=== PATIENT | male | born 2000 | race Caucasian/White ===

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

== ENCOUNTER 2022-07-08 07:03 | Emergency (ER) | payer SELFPAY ==
[~2022-07-08] VITALS: Ht 172.7 cm; Wt 86.0 kg
[2022-07-08 07:42] LABS: COLLECTION METHOD CLEAN CATCH
[2022-07-08 07:43] LABS: BASO % 0.2 % (0.0-2.0); EOS # 0.1 K/mm3 (0.0-0.7); EOS % 0.5 % (0.0-4.0); GRAN # 4.7 K/mm3 (1.4-6.5); GRAN % 48.3 % (42.2-75.2); HEMOGLOBIN 10.8 g/dl (13.5-18.0); LYMPH # 4.6 K/mm3 (1.2-3.4); LYMPH % 46.8 % (20.0-51.0); MEAN CELL VOLUME 90 fl (80.0-100.0); MEAN CORPUSCULAR HEMOGLOBIN 29 pg (27-31); MEAN CORPUSCULAR HGB CONC 32 g/dl (33.0-37.0); MEAN PLATELET VOLUME 9.4 fl (7.4-10.4); MONO # 0.3 K/mm3 (0.1-0.6); MONO % 3.2 % (1.7-9.3); PLATELET COUNT 230 K/mm3 (130-400); RED BLOOD COUNT 3.73 M/mm3 (4.20-5.60); REDCELL DISTRIBUTION WIDTH-CV 13.7 % (11.5-14.5)
[2022-07-08 07:44] LABS: HEMATOCRIT 33.6 % (42.0-52.0)
[2022-07-08 07:51] LABS: MUCOUS Present (NOT PRESENT); SQUAMOUS EPITHELIAL None Seen /hpf (0-10); URINE BACTERIA None Seen /hpf (NONE SEEN); URINE RBC >50 /hpf (0-2)
[2022-07-08 07:53] LABS: PH 5.5 (5.0-8.5); URINE APPEARANCE Cloudy (CLEAR/HAZY); URINE BLOOD 3+ (NEGATIVE); URINE COLOR Yellow (YELLOW); URINE GLUCOSE Negative (NEGATIVE); URINE KETONE Negative (NEGATIVE); URINE NITRATE Negative (NEGATIVE); URINE PROTEIN(semi-quant) TRACE (NEGATIVE); URINE UROBILINOGEN 0.2 E.U/dL (0.2-1.0)
[2022-07-08 07:53] LABS: ALANINE AMINOTRANSFERASE 258 U/L (0-55); ALBUMIN 3.4 gm/dL (3.5-5.0); ALCOHOL(ethanol),MEDICAL < 10 mg/dL (0-10); ALKALINE PHOSPHATASE 72 U/L (40-150); ANION GAP 15 mmol/L (7-16); AST,SGOT 159 U/L (5-34); BILIRUBIN,TOTAL 0.4 mg/dL (0.2-1.2); BLOOD UREA NITROGEN 15 mg/dL (9-21); CALCIUM 7.7 mg/dL (8.4-10.2); CARBON DIOXIDE 18 mmol/L (22-29); CHLORIDE 109 mmol/L (98-107); CREATININE, serum 0.88 mg/dL (0.72-1.25); GLUCOSE 139 mg/dL (70-99); POTASSIUM 3.7 mmol/L (3.5-4.5); SODIUM 142 mmol/L (136-145); TOTAL PROTEIN 6.9 gm/dL (6.2-8.1)
[2022-07-08 08:42] VITALS: BP 91/72; PULSE 107; TEMP 96.1
[2022-07-08 09:34] LABS: TRICYCLIC ANTIDEPRESS URINE NEGATIVE
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
[2022-07-08 12:25] LABS: ARTERIAL BLD GAS O2 SATURATION 99.1 % (92-100); ARTERIAL BLD GAS TCO2 CT 17.4; ARTERIAL BLOOD GAS BASE EXCESS -9.4 (-2-2); ARTERIAL BLOOD GAS HCO3 16.3 meq/L (22-26); ARTERIAL BLOOD GAS PCO2 35.1 mmHg (35-45); ARTERIAL BLOOD GAS pH 7.29 (7.35-7.45)
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
== END 2022-07-08 08:42 | disposition short-term general hospital (02) ==
LOC: COL.ER 07:03
PROVIDERS: Family Medicine
DX: S32.402A Unspecified fracture of left acetabulum, initial encounter for closed fracture (principal); R57.1 Hypovolemic shock; J96.90 Respiratory failure, unspecified, unspecified whether with hypoxia or hypercapnia; Z20.822 Contact with and (suspected) exposure to COVID-19; V89.2XXA Person injured in unspecified motor-vehicle accident, traffic, initial encounter; Y92.410 Unspecified street and highway as the place of occurrence of the external cause
CPT/HCPCS: A4314; J0330; J2060; J2270; J7030; J7040; J7060; P9016

== ENCOUNTER 2022-07-19 06:00 | Inpatient (IN) | payer OTHER ==
[~2022-07-19] VITALS: Ht 172.7 cm; Wt 75.4 kg
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
[2022-07-19] MEDS ORDERED: TYLENOL 325MG325 MG PO (11:57)
[2022-07-19] MEDS ORDERED: BACITRACIN Z500 U/GM TP (11:58)
[2022-07-19] MEDS ORDERED: VOLTAREN GEL 1%1 TU TP (11:59)
[2022-07-19] MEDS ORDERED: DULCOLAX S10 MG/SUPP RC (11:59)
[2022-07-19] MEDS ORDERED: LOVENOX 4040 MG/0.4 SQ (12:00)
[2022-07-19] MEDS ORDERED: NEURONTIN300 MG/CAP PO (12:01)
[2022-07-19] MEDS ORDERED: NEURONTIN100 MG/CAP PO (12:02)
[2022-07-19] MEDS ORDERED: ATARAX 25MG25 MG/TAB PO ×2 (12:03→12:04)
[2022-07-19] MEDS ORDERED: TORADOL 10MG TA10 MG PO (12:05)
[2022-07-19] MEDS ORDERED: MAG-OX 400400 MG/TAB PO (12:06)
[2022-07-19] MEDS ORDERED: MELATONIN5 M1 SL (12:07)
[2022-07-19] MEDS ORDERED: ROBAXIN 50500 MG/TAB PO (12:07)
[2022-07-19] MEDS ORDERED: GOOD NEIGH1200 MG/15 PO (12:08)
[2022-07-19] MEDS ORDERED: MULTIVITAMIN PO (12:09)
[2022-07-19] MEDS ORDERED: ROXICODONE 55 MG/TAB PO (12:10)
[2022-07-19] MEDS ORDERED: MIRALAX PA17 GM/Dose PO (12:10)
[2022-07-19] MEDS ORDERED: DESYREL 50MG50 MG PO (12:11)
[2022-07-19] MEDS ORDERED: SENNA-LAX8.6 MG PO (12:11)
[2022-07-19] MEDS ORDERED: VALTREX1 GM PO (12:12)
[2022-07-19 13:22] VITALS: BP 104/58; PULSE 104; TEMP 98.1
--- NOTE | 2022-07-19 14:14 | NUR ---
Has lack of transportation kept you from medical appts, meetings, work, or from getting things needed for daily living? NO How often do you feel lonely or isolated from those around you? NEVER Over the past 5 days, how much of the time has pain made it hard for you to sleep? FREQUENTLY Over the past 5 days, how often have you limited your participation in therapy due to pain? RARELY/NOT AT ALL Over the past 5 days, how often have you limited your day-to-day activities because of pain? RARELY/NOT AT ALL Have you had 2 or more falls in the past year or any fall with an injury? NO Did you have major surgery during the 100 days prior to admission? YES
--- NOTE | 2022-07-19 14:23 | NUR ---
OT to room to eval pt and provide bedside bath. Pt was given pain medication approx 1 hr ago followed by a 2nd dose per PRN order for hip pain
--- NOTE | 2022-07-19 15:29 | NUR ---
Pt is back in his room after working w/ PT and resting supine in bed. Pt reporting that his left hip dressing is peeling off. Tegaderm x 2 applied to reinforce the current dressing. Dressing is otherwise CDI. KEO drain with serosaig drainage noted - 10 mL emptied from drain. Pt is worried about the process for obtaining FMLA. Kayla, clinical liason, will contact [employer] to help pt with the FMLA process.
--- NOTE | 2022-07-19 15:56 | NUR ---
Pt requesting his fiance be allowed to stay the night tonight. Approval for tonight received from Carly Sutherland and ELOY Jack. Pt is aware.
[2022-07-19 17:23] VITALS: BP 122/73; PULSE 91; TEMP 98.5
--- NOTE | 2022-07-19 18:28 | NUR ---
Pt assisted w/ repositioning in bed. Pt reporting that he "hurts really bad". Scheduled Tylenol given approx 30 min ago. Oxycodone given per PRN order. Reminded pt that if pain is not better, he can have an additional 5mg 45 minutes later. Lt hip dsg is CDI. Abd midline incision with CDI little. KEO drain dressing is CDI. Scant amount of serosanguineous drainage noted in bulb. Pt's dinner tray just delivered. He denies additional needs. Call light is in his reach. Bed alarm is on. Significant other is at the bedside.
--- NOTE | 2022-07-19 19:00 | NUR ---
RECEIVED CHANGE OF SHIFT REPORT FROM DAY SHIFT RN.
[2022-07-20 05:06] VITALS: BP 132/59; PULSE 70; TEMP 97.1
[2022-07-20 07:04] LABS: CALCIUM 9.1 mg/dL (8.4-10.2); CREATININE, serum 0.63 mg/dL (0.72-1.25); POTASSIUM 4.3 mmol/L (3.5-4.5)
--- NOTE | 2022-07-20 07:07 | NUR ---
Shift report received from retail shift leader RN.
--- NOTE | 2022-07-20 07:27 | NUR ---
CHANGE OF SHIFT REPORT GIVEN TO DAY SHIFT RNNILS.
[2022-07-20 07:30] VITALS: BP 109/64; PULSE 73; TEMP 97.6
[2022-07-20 07:32] LABS: BASO # 0.1 K/mm3 (0.0-0.2); BASO % 0.6 % (0.0-2.0); EOS # 0.5 K/mm3 (0.0-0.7); GRAN # 8.1 K/mm3 (1.4-6.5); GRAN % 69.7 % (42.2-75.2); HEMATOCRIT 30.2 % (42.0-52.0); HEMOGLOBIN 10.1 g/dl (13.5-18.0); LYMPH # 1.8 K/mm3 (1.2-3.4); LYMPH % 15.5 % (20.0-51.0); MEAN CELL VOLUME 89 fl (80.0-100.0); MEAN CORPUSCULAR HEMOGLOBIN 30 pg (27-31); MEAN CORPUSCULAR HGB CONC 33 g/dl (33.0-37.0); MEAN PLATELET VOLUME 8.6 fl (7.4-10.4); MONO # 1.1 K/mm3 (0.1-0.6); MONO % 9.4 % (1.7-9.3); PLATELET COUNT 1085 K/mm3 (130-400); RED BLOOD COUNT 3.39 M/mm3 (4.20-5.60); REDCELL DISTRIBUTION WIDTH-CV 15.7 % (11.5-14.5)
--- NOTE | 2022-07-20 09:44 | NUR ---
Pt is back in his room after OT and is lying supine in bed. Pt ate 100% of his breakfast independently. Pt reporting shoulder pain, hip pain. Oxycodone dose increased for reports of uncontrolled pain during the night. Oxycodone 10mg given per PRN order. Pt initially reported nausea, but currently denies. Zofran wasted in medication room. Pt denies additional needs at this time. Call light is in his reach. Bed alarm is on.
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
[2022-07-20 17:08] VITALS: BP 112/68; PULSE 75; TEMP 98.2
--- NOTE | 2022-07-20 18:40 | NUR ---
Pt resting supine in bed. HOB is slightly elevated. Boyfriend is here to visit. PRN pain medication and scheduled Tylenol given approx 45 minutes ago for hip pain and left arm pain. Pt denies additional needs at this time. Call light is in his reach. Bed alarm is on.
--- NOTE | 2022-07-20 19:29 | NUR ---
BED ALARM SOUNDING. PT SITTING UP ON SIDE OF BED. C/O ABD FEELING FUNNY. REVIEWED IPR POLICIES FOR SAFETY. PT BECOMES ARGUMENTATIIVE. PROVIDED RATIONALE. STILL ARGUEMENTATIVE. ASSISTED TO BR PER WC. STARTED TO REFUSE GAIT BELT. TO TOILET. BATHROOM PULL STRING GIVEN TO PT. RE-ENFORCED NOT TO STAND UP UNTIL STAFF RETURNS. FOUND PT STANDING AT TOILET PULLING HIS PANTS UP. AGAIN ARGUMENTATIVE. WANTS SHOWER TONIGHT. OFFERED WARM BATH WIPES TO CLEAN UP. OT WILL ASSIST HIM WITH SHOWER TOMORROW. PT AGAIN ARGUMENTATIVE. BACK TO BED PER WC. ABLE TO LIFT LEGS INTO BED WITH DEVICE. CALL LIGHT IN REACH. BED ALARM SET.
[2022-07-21 06:20] VITALS: BP 107/61; PULSE 82; TEMP 97.7
--- NOTE | 2022-07-21 06:44 | NUR ---
BEDSIDE REPORT DONE ORDER WITH MERCEDES VILLAVICENCIO NURSE
--- NOTE | 2022-07-21 10:38 | NUR ---
ASSESSMENT DONE ORDER. PATIENT ALERT AND ORIENTED X 4 WITH NO MEMORY ISSUE. PATIENT LUNG CLEAR IN ALL LOBES. BOWENL SOUND ACTIVE IN ALL 4QUADS. PATIEN ABLE TO GET UP WITH ASSISTANCE BUT ABLE TO MOVE AROUND PIVOT FROM BED TO WHEELCHAIR AND TO THE BATHROOM
[2022-07-21 17:29] VITALS: BP 107/62; PULSE 78; TEMP 98
--- NOTE | 2022-07-21 19:10 | NUR ---
PATIENT HAS BEEN UP AND DOWN WITH CRYING. PAIN MEDICATION EVERY 4-5 HOURS. PAIN IN THE AFTERNOON/EVENING HAS BEEN THE STOMACH AREA. PATIENT DID HAVE A LOOSE WATERY STOOL. ATAREX WAS STARTED AND VALTREX. PATIENT REQUESTION TO SHOWER. DR HEATON ASK TO CALL DOCTORS FROM REGARDING IT. I CALLED [facility] SHOWER. LEFT MESSAGES
--- NOTE | 2022-07-21 21:17 | NUR ---
PT RESTING IN BED. CALM AND TALKATIVE. PAIN CONTROLLED AT THIS TIME. PT REPORTED IT WAS APPROVED FOR SO TO STAY WITH PT AT HS. NO NEEDS AT THIS TIME. CALL LIGHT IN REACH. BED ALARM SET.
[2022-07-22 06:27] VITALS: BP 103/63; PULSE 73; TEMP 97.9
--- NOTE | 2022-07-22 06:46 | NUR ---
BEDSIDE REPORT DONE ORDER. PATIENT RESTING PEACEFULLY.CALL LIGHT IN REACH
--- NOTE | 2022-07-22 10:17 | NUR ---
ASSESSMENT DONE ORDER. PATIENT ALERT AND ORIENTED. RECEIVED CALL FROM LIZETTE FROM [facility]. SHE GAVE US THE OK FOR PATIENT TO SHOWER BUT NOT GET THE INCISION WET. INFORM DOCTOR SUDARSHAN
--- NOTE | 2022-07-22 15:55 | NUR ---
Concrete Float Maker met with patient to follow up prior to weekend. SW advised patient she received [place] paperwork and will provide to it physician to sign. SW also discussed low income housing application with patient.
[2022-07-22 17:34] VITALS: BP 111/67; PULSE 80; TEMP 97.4
--- NOTE | 2022-07-23 01:36 | NUR ---
Patient assessed around 2054. Alert and oriented, and able to make needs known. Complaining of pain to left hip area. Given scheduled medications, as well as PRN Roxicodone as requested. Patient repositoned self in bed. Voices no further questions, needs, or concerns at this time. In bed with call light within reach.
[2022-07-23 05:17] VITALS: BP 124/96; PULSE 81; TEMP 97.6
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
--- NOTE | 2022-07-23 07:15 | NUR ---
BEDSIDE REPORT DONE ORDER. PATIENT RESTING IN BED
--- NOTE | 2022-07-23 10:17 | NUR ---
ASSESSMENT DONE ORDER. PATIENT ALERT AND ORIENTED. PATIENT ABLE TO GET UP WITH SBA AND WALKER. UNABLE TO STAND ON LEFT LEG. LUNG CLEAR. BOWEL SOUND ACTIVE IN ALL 4 QUADS. REFUSED TO EAT BREAKFAST AND SPOUSE BRING LUNCH AND DINNER
[2022-07-23 17:33] VITALS: BP 109/57; PULSE 78; TEMP 98.5
--- NOTE | 2022-07-23 18:15 | NUR ---
PATIENT C/O OF LEFT HIP PAIN AND OXY WAS NOT TOUCHING IT. GAVE PATIENT A HEATING PAD AND THAT WORK WELL, PER PAIN. PATIENT PAIN HAS BEEN ABOUT 2-3/10 AND PATIENT ONLY TOOK OXY X 2 TODAY. WE HELD THE LAXITIVE AM TODAY AND WILL GIVE TONIGHT.
--- NOTE | 2022-07-24 00:42 | NUR ---
PATIENT IS AOX4 AND PLEASANT TO SPEAK WITH. HE IS IN PAIN UPON ASSESSING PATIENT. THE PAIN IS IN HIS LEFT HIP AND CONTINUES DOWN HIS LEG, RATING IT A 7/10. GIVEN OXYCODONE 1X, TORADOL 1X, AND SCHEDULED TYLENOL. SPOUSE AT BEDSIDE. PILLOW ADJUSTED MULTIPLE TIMES FOR COMFORT. ASSISTED TO THE BATHROOM VIA STAND PIVOT TO WHEELCHAIR, TOLERATING WELL. SCD PLACED TO LEFT LEG. 25ML OUT OF KEO WITH SEROSANGUINOUS FLUID. VOLTAREN GEL APPLIED TO PAINFUL AREAS. JOHN INTACT AND PAINFUL TO TOUCH. HEATING PAD ON LEFT HIP INTERMITTENTLY. PATIENT HAD A BM TONIGHT, ONLY WANTED STOOL SOFTENERS SINCE HE HAD A BM. CURRENTLY SLEEPING IN BED WITH SPOUSE AT BEDSIDE. CALL LIGHT IN REACH. BED IN LOWEST POSITION.
--- NOTE | 2022-07-24 01:44 | NUR ---
Patient care, medication administration and nursing documentation occurred during a Daylight Savings Time Change.
--- NOTE | 2022-07-24 04:18 | NUR ---
PATIENT RESTING COMFORTABLY WITH SPOUSE AT BEDSIDE. FACES SCORE OF 0/10. WILL REASSESS WHEN VITAL SIGNS ARE TAKEN. CALL LIGHT IN REACH. BED IN LOWEST POSITION.
[2022-07-24 04:34] VITALS: BP 107/68; PULSE 69; TEMP 97.3
--- NOTE | 2022-07-24 07:05 | NUR ---
BEDSIDE REPORT DONE ORDER. PATIENT RESTING IN BED
--- NOTE | 2022-07-24 10:22 | NUR ---
ASSESSMENT DONE O RDER. PATIENT HAS BEEN RESTING IN BED WITH SOME PAIN THIS MORNING. BOTH PAIN MEDICATION WAS GIVEN ORDER AND HEATING PAD IN PLACE. AFTER ABOUT 1 HOURS. PATIENT STATED HIS PAIN IS MANAGEABLE. LUNG CLEAR., BOWEL SOUND ACTIVE.
--- NOTE | 2022-07-24 15:32 | NUR ---
PATIENT HAS BEEN RESTING IN BED WITH FRIENDS AND SPOUSE. WENT OUT OF ROOM WITH SPOUSE TO THE VENDING MACHINE AND BACK. ONLY HAD 1 DOSE OF OXY AT THIS TIME.
[2022-07-24 17:58] VITALS: BP 113/71; PULSE 73; TEMP 97.9
--- NOTE | 2022-07-24 19:00 | NUR ---
RECEIVED CHANGE OF SHIFT REPORT FROM DAY SHIFT RN.
[2022-07-25 04:20] VITALS: BP 107/57; PULSE 73; TEMP 98.1
--- NOTE | 2022-07-25 06:40 | NUR ---
CHANGE OF SHIFT REPORT GIVEN TO DAY SHIFT RNNILS.
--- NOTE | 2022-07-25 07:05 | NUR ---
Shift report received from security shift manager RN.
--- NOTE | 2022-07-25 09:04 | NUR ---
Pt resting supine in bed w/ HOB elevated to approx 20 degrees. Pt reporting "alot of pain" and is requesting pain medication. Will administer when dose is next due. Pt denies n/v. Reports normal stools. KEO drain compressed. Midline abd. incision w/ intact little. Left hip dsg CDI. SCD is on LLE. Pt refusing breakfast this morning and states that he normally does not eat breakfast. Pt denies additional needs. Call light is in his reach. Bed alarm is on.
--- NOTE | 2022-07-25 14:44 | NUR ---
Dye Worker met with Patient to discuss discharge planning. Patient reported that he wants to discharge by Monday, the . SW briefed Patient that the treatment team will hold a meeting to review his progress and assess for discharge needs. SW briefed that after that treatemt team meeting, SW will collaborate with Patient to review and assess for discharge needs at that time.
--- NOTE | 2022-07-25 15:56 | NUR ---
Admission QIM scores were reviewed by the team. Code of 3 chosen for toilet hygiene was determined by team discussion to be the most usual performance before interventions for this patient during the assessment period. Code of 3 chosen for sit to lying was determined by team discussion to be the most usual performance before interventions for this patient during the assessment period. Code of 4 chosen for lying to sitting on side of bed was determined by team discussion to be the most usual performance before interventions for this patient during the assessment period. Code of 4 chosen for chair/bed to chair transfer was determined by team discussion to be the most usual performance before interventions for this patient during the assessment period.--Carly Quezada, PD
[2022-07-25 18:32] VITALS: BP 108/64; PULSE 76; TEMP 98.4
--- NOTE | 2022-07-25 18:43 | NUR ---
RECEIVED CHANGE OF SHIFT REPORT FROM DAY SHIFT RN.
--- NOTE | 2022-07-25 19:49 | NUR ---
PATIENT MENTIONED FELT THE MELATONIN WAS NOT HELPING WITH SLEEP, USED TO TAKING UNISOM AT HOME, AGREED TO TRY TRAZADONE DAILY AT HS AND WANTING TO GET NONNARCOTIC PAIN MED ORDERED FOR PAIN IF POSSIBLE. INFORMED PROVIDER OF PATIENT'S REQUEST, ORDERS TO BE ENTERED BY PROVIDER.
--- NOTE | 2022-07-26 01:34 | NUR ---
DRESSING TO LEFT HIP TEGADERM COMING OFF AND GAUZE DAMP FROM LEAKING KPAD. GAUZE REPLACED WITH DRY STERILE GAUZE AND NEW TEGADERM APPLIED OVER GAUZE DRESSING. SEE MAR FOR PAIN MEDS GIVEN, PATIENT COMPLAINED OF LOW BACK AND LLE ACHING.
--- NOTE | 2022-07-26 01:36 | NUR ---
PATIENT SHOWERED PRIOR TO BEDTIME FOR COMFORT FROM ACHING LEG/BACK MUSLCES.
[2022-07-26 05:10] VITALS: BP 92/57; PULSE 60; TEMP 97.7
[2022-07-26 06:54] LABS: CALCIUM 9.4 mg/dL (8.4-10.2); CREATININE, serum 0.69 mg/dL (0.72-1.25); POTASSIUM 3.9 mmol/L (3.5-4.5)
--- NOTE | 2022-07-26 06:55 | NUR ---
CHANGE OF SHIFT REPORT GIVEN TO DAY SHIFT RNNILS.
[2022-07-26 06:58] LABS: BASO # 0.1 K/mm3 (0.0-0.2); EOS # 0.3 K/mm3 (0.0-0.7); EOS % 4.2 % (0.0-4.0); GRAN % 43.5 % (42.2-75.2); HEMATOCRIT 31.6 % (42.0-52.0); HEMOGLOBIN 10.2 g/dl (13.5-18.0); LYMPH # 2.7 K/mm3 (1.2-3.4); MEAN CELL VOLUME 92 fl (80.0-100.0); MEAN CORPUSCULAR HEMOGLOBIN 30 pg (27-31); MEAN CORPUSCULAR HGB CONC 32 g/dl (33.0-37.0); MEAN PLATELET VOLUME 8.5 fl (7.4-10.4); MONO # 0.8 K/mm3 (0.1-0.6); MONO % 12.2 % (1.7-9.3); PLATELET COUNT 1020 K/mm3 (130-400); RED BLOOD COUNT 3.44 M/mm3 (4.20-5.60); REDCELL DISTRIBUTION WIDTH-CV 16.2 % (11.5-14.5)
--- NOTE | 2022-07-26 07:06 | NUR ---
Shift report received from shift nurse manager RN.
--- NOTE | 2022-07-26 10:03 | NUR ---
Pt is back in his room after OT. Pt showered this morning w/ OT assistance. Pt given oxycodone prior to OT at his request. Pt would like to stay up in his wheelchair for awhile. He denies additional needs. Call light is in his reach.
--- NOTE | 2022-07-26 10:10 | NUR ---
Pt has scheduled f/u with [facility] this morning. Called [facility]o to reschedule this f/u and discuss staple removal. Voice mail left for Ortho to call IPR Nurse phone.
--- NOTE | 2022-07-26 10:59 | NUR ---
Called [facility] to ask about abd. incision staple removal. Pt is scheduled for f/u on 08/02. They will remove the little during the f/u appt. next week.
[2022-07-26 17:06] VITALS: BP 113/66; PULSE 74; TEMP 98.3
--- NOTE | 2022-07-26 19:38 | NUR ---
RECEIVED CHANGE OF SHIFT REPORT FROM DAY SHIFT RN. PATIENT IN BED, EXIT ALARM ON, CALL LIGHT IN REACH. REQUESTED AND APPLIED VOLTAREN GEL TO LEFT HIP AND L CALF AREA.
--- NOTE | 2022-07-26 21:30 | NUR ---
PATIENT WANTING TO TAKE HS MEDS AFTER HE FINISHES WATCHING A MOVIE WITH HIS S.O. PATIENT DENIES ANY NEEDS OR COMPLAINTS AT THIS TIME.
--- NOTE | 2022-07-26 22:10 | NUR ---
PATIENT REQUESTED AND GIVEN PAIN MEDS SEE MAR.
[2022-07-27 05:56] VITALS: BP 92/46; PULSE 62; TEMP 97.6
--- NOTE | 2022-07-27 07:19 | NUR ---
CHANGE OF SHIFT REPORT GIVEN TO DAY SHIFT RNISAIAH.
--- NOTE | 2022-07-27 08:00 | NUR ---
PATIENT IS ORIENTED X4 BUT A LITTLE DROWSY THIS AM. NOTED SOFT B/P OF 92/46. PATIENT REPORTS HIS B/P IS OFTEN ON THE LOW SIDE. ALL OTHER VSS. C/O PAIN IN LLE. RIGHT OF WAY MAINTENANCE SUPERVISOR GAVE PRN ROXICODONE BEFORE SHIFT CHANGE. APPLIED TOPICAL CREAM PER PATIENT REQUEST. PATIENT ALSO USING K-PADS X2 FOR COMFORT. INDEPENDENT IN BED. NWB TO LLE. WBAT TO RLE. SPLINT TO LUE. PT/OT/ST CONSULTED. LEFT HIP DSG IS CD&I WITH GAUZE & TEGADERM. MIDLINE INCISION IS WELL APPROXIMATED AND MAINTENANCE CLERK. KEO DRAIN TO COMPRESSION WITH SMALL AMOUNTS OF SEROUS FLUID NOTED. NO C/O N/V. HEAD TO TOE ASSESSMENT COMPLETE. PATIENT'S BOYFRIEND ASLEEP AT BEDSIDE. NO OTHER NEEDS AT THIS TIME. PATIENT WANTS TO REST TILL THERAPY COMES. CALL LIGHT IN REACH. DOOR CLOSED PER PATIENT REQUEST.
--- NOTE | 2022-07-27 16:04 | NUR ---
Corporate Development Officer met with PAtient to reciew treatment team notes and discuss discharge planning. SW briefed Patient that a request for a wheelchair has been submitted to [facility]. SW collaborated with patient to review treatment team notes. Patient intends on discharging home tomorrow, 07-28-22.
[2022-07-27 17:53] VITALS: BP 152/65; PULSE 94; TEMP 98.1
--- NOTE | 2022-07-27 21:30 | NUR ---
PATIENT IS RESTING IN BED.PATIENT'S BOYFRIEND IS IN THE ROOM WITH THE PATIENT.PATIENT DENIES PAIN AT THIS TIME.PATIENT TAKES PILLS WHOLE WITH NO TROUBLE.ABD AND L HIP INCISIONS ARE DRY AND CLEAN.KEO DRAIN HAS MINIMAL DRAINAGE.SAFETY MEASURES IN PLACE.NO OTHER NEEDS AT THIS TIME.
--- NOTE | 2022-07-28 05:18 | NUR ---
PATIENT IS SLEEPING RIGHT NOW.NO PAIN REPORTED.BOYFRIEND SPENT THE NIGHT WITH THE PATIENT.NO OTHER NEEDS AT THIS TIME.
[2022-07-28 05:44] VITALS: BP 105/62; PULSE 63; TEMP 97.8
--- NOTE | 2022-07-28 09:30 | NUR ---
Head Correction Officer contacted [facility] primary care scheduling to verify PAtient's appointments for PCP. Scheduler Conveyor verrified that [facility] has a follow-up for recent inpatient visit on 07-29-22 as well as a phone appointment scheduled on 08-22 and an intake for new patient appointment at primary care office on 08-26.
--- NOTE | 2022-07-28 10:00 | NUR ---
VSS, Ox4, reports mild pain to L hip with standing and movement. Pt up to take shower this AM. Dressing to drain and L hip changed upon getting out of shower. Victor to incsions intact, KEO drain remains sutured in place. Serous drainage to KEO drain. Pt educated on the following: KEO drain - strip line, empty drain and collapse bulb for suction. Dressing changes to KEO drain and L hip. Administration of lovenox injection. Pt very nervous about giving injection, so SO was educated about each of these tasks as well.
[2022-07-28] MEDS ORDERED: LOVENOX 4040 MG/0.4 SQ (10:13)
[2022-07-28] MEDS ORDERED: VOLTAREN GEL 1%1 TU TP (10:14)
[2022-07-28] MEDS ORDERED: NALOXONE 1MG/1 MG/ML IJ (10:16)
[2022-07-28] MEDS ORDERED: DESYREL 50MG50 MG PO (10:18)
[2022-07-28] MEDS ORDERED: NEURONTIN300 MG/CAP PO (10:18)
[2022-07-28] MEDS ORDERED: LEXAPRO 10MG10 MG PO (10:19)
[2022-07-28] MEDS ORDERED: SENNA-LAX8.6 MG PO (10:19)
[2022-07-28] MEDS ORDERED: GOOD NEIGH1200 MG/15 PO (10:21)
[2022-07-28] MEDS ORDERED: MIRALAX238G PO (10:22)
[2022-07-28] MEDS ORDERED: BACITRACIN TOPIC1 TU TOP (10:23)
[2022-07-28] MEDS ORDERED: MULTIVITAMIN PO (10:24)
[2022-07-28] MEDS ORDERED: MELATONIN5 M1 PO (10:24)
[2022-07-28] MEDS ORDERED: ROXICODONE 55 MG/TAB PO (10:24)
--- NOTE | 2022-07-28 12:53 | NUR ---
Discussed d/c with pt and SO. Both acknowledge understanding. Pt given dressing change supplies to take home so that he may change hip and KEO dressings PRN until f/u. Pt/SO aware of f/u appts tomorrow and 08/02/22. Reminded several times that dates/times and addresses are listed and highlighted on d/c ppw. Pt WC was not delivered to room prior to pt d/c. Arrangements made and pt given address to p/u WC at [facility]. SO packed and transported pt belongings from room. Pt escorted from facility via WC and assisted into POV driven by SO.
--- NOTE | 2022-07-28 14:37 | NUR ---
Has lack of transportation kept you from medical appts, meetings, work, or from getting things needed for daily living? NO How often do you feel lonely or isolated from those around you? NEVER Over the past 5 days, how much of the time has pain made it hard for you to sleep? OCCASIONALLY Over the past 5 days, how often have you limited your participation in therapy due to pain? RARELY/NOT AT ALL Over the past 5 days, how often have you limited your day-to-day activities because of pain? RARELY/NOT AT ALL
== END 2022-07-28 12:53 | disposition home or self-care (01) | DRG 560 ==
PROVIDERS: ADMIT Physical Medicine & Rehabilitation Sports Medicine
DX: S32.402D Unspecified fracture of left acetabulum, subsequent encounter for fracture with routine healing (principal); E87.1 Hypo-osmolality and hyponatremia; S36.039D Unspecified laceration of spleen, subsequent encounter; S32.810D Multiple fractures of pelvis with stable disruption of pelvic ring, subsequent encounter for fracture with routine healing; R26.89 Other abnormalities of gait and mobility; S36.113D Laceration of liver, unspecified degree, subsequent encounter; V49.40XD Driver injured in collision with unspecified motor vehicles in traffic accident, subsequent encounter; Y92.410 Unspecified street and highway as the place of occurrence of the external cause; S27.321D Contusion of lung, unilateral, subsequent encounter; S52.612D Displaced fracture of left ulna styloid process, subsequent encounter for closed fracture with routine healing; S36 Injury of intra-abdominal organs; S36.892D Contusion of other intra-abdominal organs, subsequent encounter; E83.42 Hypomagnesemia; D69.6 Thrombocytopenia, unspecified; D64.9 Anemia, unspecified; K59.00 Constipation, unspecified; G47.00 Insomnia, unspecified; M79.662 Pain in left lower leg; M79.661 Pain in right lower leg; Z90.81 Acquired absence of spleen; Z97.8 Presence of other specified devices; Z73.6 Limitation of activities due to disability
CPT/HCPCS: J1650